=== PATIENT | male | born 1985 | race Caucasian/White ===

== ENCOUNTER → 2020-07-01 | Outpatient (CLI) | payer OTHER ==
--- NOTE | 2020-07-01 14:24 | CT ---
EXAMINATION TYPE: CT abdomen pelvis w con DATE OF EXAM: 07/01/2020 COMPARISON: NONE HISTORY: 34-year-old male RLQ pain and swelling x1 year TECHNIQUE: Contiguous axial scanning of the abdomen and pelvis following administration of 100 ml Iso raffy 300 IV contrast. Delayed images through the kidneys and coronal/sagittal reconstructions perform ed. CT DLP: 449.5 mGycm Automated exposure control for dose reduction was used. FINDINGS: Heart normal size without pericardial effusion. Basically clear without pleural effusion. No focal liver lesion or biliary ductal dilatation. Portal venous system is patent. Gallbladder, adrenal glands, kidneys, spleen, and pancreas appear within normal limits. No dilated small bowel, free fluid, or free air. Short segment of suspected normal appendix is visualized in the right lower quadrant. No secondary fi ndings of acute appendicitis in the right lower quadrant. Mild to moderate stool burden. No pericolon ic inflammatory change. Numerous nonenlarged and borderline to mildly enlarged mesenteric lymph nodes are present, largest me asuring 1.0 cm, refer to coronal image 25. Some prominent fluid filled small bowel loops noted in the lower abdomen/pelvis. Bladder urine distended. No abnormal fluid collection the pelvis or pelvic lymphadenopathy. Bones: Prominent anterior femoral head neck junction osseous excrescences and superior acetabular ret roversion on both sides. No osseous destructive process. IMPRESSION: 1. NUMEROUS NONENLARGED AND BORDERLINE AND MILDLY ENLARGED MESENTERIC LYMPH NODES MEASURING UP TO 1 C M. FINDINGS ARE NONSPECIFIC BUT MAY BE SEEN WITH MESENTERIC ADENITIS. 2. BONY CHANGES OF THE HIPS CAN BE SEEN WITH FEMORAL ACETABULAR IMPINGEMENT SYNDROME. CORRELATE WITH PHYSICAL EXAM TESTING.
== END | disposition home or self-care (01) ==
LOC: RADCTMAIN 12:23
PROVIDERS: ATTEND Student in an Organized Health Care Education/Training Program
DX: R93.7 Abnormal findings on diagnostic imaging of other parts of musculoskeletal system (principal)
CPT/HCPCS: 74177; Q9967

== ENCOUNTER 2022-05-09 05:21 | Emergency (ER) | payer OTHER ==
[2022-05-09 05:41] VITALS: TEMP 98.1
[2022-05-09 05:59] LABS: Basophils % (A) 1 %; Eosinophils % (A) 0 %; HCT 44.6 % (39.0-53.0); HGB 15.7 gm/dL (13.0-17.5); Lymphocytes # (A) 1.5 k/uL (1.0-4.8); Lymphocytes % (A) 31 %; MCH 31.4 pg (25.0-35.0); MCHC 35.2 g/dL (31.0-37.0); MCV 89.4 fL (80.0-100.0); Mean Platelet Volume 7.8; Monocytes # (A) 0.4 k/uL (0-1.0); Monocytes % (A) 8 %; Neutrophils # (A) 2.8 k/uL (1.3-7.7); Neutrophils % (A) 56 %; Platelet Count 239 k/uL (150-450); RBC 4.99 m/uL (4.30-5.90); RDW 12.4 % (11.5-15.5)
[2022-05-09 06:07] LABS: INR 0.9 (<1.2); Partial Thromboplastin Time 24.8 sec (22.0-30.0)
[2022-05-09 06:14] LABS: Albumin 4.8 g/dL (3.5-5.0); Calcium 9.5 mg/dL (8.4-10.2); Potassium 4.2 mmol/L (3.5-5.1); Total Bilirubin 0.5 mg/dL (0.2-1.3); Total Protein 7.7 g/dL (6.3-8.2)
[2022-05-09] MEDS ORDERED: SODIUM CHLORIDE 0.9% 1,000 ML IV ONE (06:22)
--- NOTE | 2022-05-09 07:04 | ED ---
Chest Pain HPI - General Chief Complaint: Chest Pain Stated Complaint: Chest pain Time Seen by Provider: 05/09/22 06:09 Source: patient, RN notes reviewed Mode of arrival: ambulatory Limitations: no limitations - History of Present Illness Initial Comments: 36-year-old male presents emergency Department with chief complaint of palpitations. Patient states his has been racing all night. Patient states he does have a history of SVT. Patient states he did have leg is worse when he is lying down. Patient states now that his right emergency department seems to be improving. Patient denies any fever or chills. Patient was seen at urgent care for some upper respiratory symptoms. Patient states that he received a shot B- 12 that time he had negative swabs. Patient has nausea vomiting patient states took an additional Rythmol early this morning. - Related Data Home Medications Medication Instructions Recorded Confirmed Propafenone [Rythmol] 150 mg PO BID 05/09/22 05/09/22 Allergies Allergy/AdvReac Type Severity Reaction Status Date / Time No Known Allergies Allergy Verified 05/09/22 05:37 Review of Systems ROS Statement: Those systems with pertinent positive or pertinent negative responses have been documented in the HPI. ROS Other: All systems not noted in ROS Statement are negative. EKG Findings - EKG Comments: EKG Findings:: EKG performed at 5:28 sinus rhythm rate of 98 [place] 131 QRS 96 QT/QTC 346/388 Past Medical History Past Medical History: Supraventricular Tachycardia (SVT) Past Surgical History: No Surgical Hx Reported Past Psychological History: No Psychological Hx Reported Smoking Status: Never smoker Past Alcohol Use History: Occasional Past Drug Use History: None Reported General Exam Limitations: no limitations General appearance: alert, in no apparent distress Head exam: Present: atraumatic, normocephalic, normal inspection Eye exam: Present: normal appearance, PERRL, EOMI. Absent: scleral icterus, conjunctival injection, periorbital swelling ENT exam: Present: normal exam, normal oropharynx, mucous membranes moist Neck exam: Present: normal inspection, full ROM. Absent: tenderness, meningismus, lymphadenopathy Respiratory exam: Present: normal lung sounds bilaterally. Absent: respiratory distress, wheezes, rales, rhonchi, stridor Cardiovascular Exam: Present: regular rate, normal rhythm, normal heart sounds. Absent: systolic murmur, diastolic murmur, rubs, gallop, clicks GI/Abdominal exam: Present: soft, normal bowel sounds. Absent: distended, tenderness, guarding, rebound, rigid Course Vital Signs 05/09/22 05:38 Temperature 98.1 F Pulse Rate 97 Respiratory 18 Rate Blood Pressure 125/88 O2 Sat by Pulse 98 Oximetry Chest Pain MDM - MDM Was pt. sent in by a medical professional or institution ([facility], [facility], urgent care, hospital, or alf...) When possible be specific @ -No Did you speak to anyone other than the patient for history (EMS, parent, family, police, friend...)? What history was obtained from this source @ -No Did you review nursing and triage notes (agree or disagree)? Why? @ -I reviewed and agree with nursing and triage notes Were old charts reviewed (outside hosp., previous admission, EMS record, old EKG, old radiological studies, urgent care reports/EKG's, alf records)? Report findings @ -No old charts were reviewed Differential Diagnosis (chest pain, altered mental status, abdominal pain women, abdominal pain men, vaginal bleeding, weakness, fever, dyspnea, syncope, headache, dizziness, GI bleed, back pain, seizure, CVA, palpatations, mental health)? @ -Palpitations, ACS, pneumothorax, dehydration, COVID-19, URI, this list is not all-inclusive EKG interpreted by me (3pts min.). @ -As above X-rays interpreted by me (1pt min.). @ -Chest x-ray shows no acute reported process CT interpreted by me (1pt min.). @ -None done U/S interpreted by me (1pt. min.). @ -None done What testing was considered but not performed or refused? (CT, X-rays, U/S, labs)? Why? @ -None What meds were considered but not given or refused? Why? @ -None Did you discuss the management of the patient with other professionals (professionals i.e. [facility], [facility], lab, RT, psych nurse, social work assistant, district wire chief, teacher, police officer, medical case manager)? Give summary @ -No Was smoking cessation discussed for >3mins.? @ -No Was critical care preformed (if so, how long)? @ -No Were there social determinants of health that impacted care today? How? (Homelessness, low income, unemployed, alcoholism, drug addiction, transportation, low edu. Level, literacy, decrease access to med. care, usp, rehab)? @ -No Was there de-escalation of care discussed even if they declined (Discuss DNR or withdrawal of care, Hospice)? DNR status @ -No What co-morbidities impacted this encounter? (DM, HTN, Smoking, COPD, CAD, Cancer, CVA, ARF, Chemo, Hep., AIDS, mental health diagnosis, sleep apnea, morbid obesity)? @ -History of SVT Was patient admitted / discharged? Hospital course, mention meds given and route, prescriptions, significant lab abnormalities, going to OR and other pertinent info. @ -Discharge- patient presented with palpitations prior arrival history of SVT. Patient symptoms resolved upon arriving the emergency department. Patient remains to be asymptomatic but no acute findings. Patient discharged with close follow-up return parameters were discussed. Undiagnosed new problem with uncertain prognosis? @ -No Drug Therapy requiring intensive monitoring for toxicity (Heparin, Nitro, Insulin, Cardizem)? @ -No Were any procedures done? @ -No Diagnosis/symptom? @ -Palpitations Acute, or Chronic, or Acute on Chronic? @ -acute Uncomplicated (without systemic symptoms) or Complicated (systemic symptoms)? @ -uncomplicated Side effects of treatment? @ -No Exacerbation, Progression, or Severe Exacerbation? @ -No Poses a threat to life or bodily function? How? (Chest pain, [place], [place], pneumonia, PE, COPD, DKA, ARF, appy, cholecystitis, CVA, Diverticulitis, Homicidal, Suicidal, threat to staff... and all critical care pts) @ -No Disposition Clinical Impression: Palpitations Disposition: HOME SELF-CARE Condition: Stable Instructions (If sedation given, give patient instructions): Heart Palpitations (ED) Additional Instructions: Please return to the Emergency Department if symptoms worsen or any other concerns. Is patient prescribed a controlled substance at d/c from ED?: No Referrals: John Mcclain MD [Primary Care Provider] - 1-2 days Time of Disposition: 08:14
--- NOTE | 2022-05-09 07:16 | XR ---
EXAMINATION TYPE: XR chest 2V DATE OF EXAM: 05/09/2022 6:05 AM COMPARISON: Chest radiographs from 05/09/2022. TECHNIQUE: XR chest 2V Frontal and lateral views of the chest. CLINICAL INDICATION:Male, 36 years old with history of chest pain shortness of breath; FINDINGS: Lungs/Pleura: There is no evidence of pleural effusion, focal consolidation, or pneumothorax. Pulmonary vascularity: Unremarkable. Heart/mediastinum: Cardiomediastinal silhouette is unremarkable. Musculoskeletal: No acute osseous pathology. IMPRESSION: No acute cardiopulmonary disease/process.
[2022-05-09 08:22] VITALS: BP 115/82; PULSE 77; RESP 22
== END 2022-05-09 08:22 | disposition home or self-care (01) ==
LOC: EC 05:21
DX: R00.2 Palpitations (principal); Z20.822 Contact with and (suspected) exposure to COVID-19
CPT/HCPCS: 36415; 71046; 80053; 84484; 85025; 85610; 85730; 87636; 93005; 96360; 99285

== ENCOUNTER → 2023-04-08 | Outpatient (CLI) | payer OTHER ==
--- NOTE | 2023-04-09 14:27 | XR ---
EXAMINATION TYPE: XR knee complete LT DATE OF EXAM: 04/08/2023 COMPARISON: None HISTORY: 37-year-old male M25.562 PAIN IN LEFT KNEE TECHNIQUE: 3 views FINDINGS: [id number] knee joint effusion. Somewhat irregular appearance to the articular surface of the lateral tibial plateau. An underlying subtle subchondral/tibial plateau fracture is difficult to excl ude especially given the patient's history of a fall. IMPRESSION: Some irregularity along the articular surface of the lateral tibial plateau. There is a [id number] rate joint effusion. Given the patient's history of a fall, unable to exclude a subtle tibial plateau fracture. Consider further CT or MRI evaluation.
== END | disposition home or self-care (01) ==
LOC: RADXRMAIN 12:47
PROVIDERS: ATTEND Family Medicine
DX: M25.462 Effusion, left knee (principal); M25.562 Pain in left knee